=== PATIENT | female | born 1990 ===

== ENCOUNTER 2018-05-17 19:00 | Inpatient (IN) | payer OTHER ==
[2018-05-17] MEDS ORDERED: PROMETHAZINE HCL 25 MG/1 ML VIAL IVPUSH ONE (20:40)
[2018-05-17] MEDS ORDERED: BUTORPHANOL TARTRATE 1 MG/ML VIAL IVPUSH ONE (20:40)
--- NOTE | 2018-05-17 20:40 | HP ---
Past Medical History - Primary Care Physician PCP:: Paulette Melgar - Admission Chief Complaint: 28yo P0 @ 40.4 with + FM, no VB, no LOF. for Postterm IOL History of Present Illness: 1. Anemia of - s/p one iron transfusion 2. Domesticated cat - Toxo IgG/IgM neg 3. Choroid plexus cyst resolved 4. PCOS - spontaneous 5. Low lying placenta resolved 6. GCT abn - GTT wnl 7. Tdap 03/11/18 8. Flu shot 05/16/18 History Source: Patient Limitations to Obtaining History: No Limitations - Past Medical History ...: 1 ...Para: 0 ... Weeks Gestation by Dates: 40.4 ...EDC by Dates: 05/13/18 Heme/Onc: Yes: Anemia (of , had iron transfusion) Endocrine: Yes: Other (PCOS) - Past Surgical History Hx Myomectomy: No Hx Transabdominal Cerclage: No Additional Surgical History: 1. Nose surgery. 2. Moles removed from the skin Home Medications - Allergies Allergies/Adverse Reactions: Allergies Allergy/AdvReac Type Severity Reaction Status Date / Time Penicillins AdvReac Verified 05/17/18 21:24 Family Disease History - Family Disease History Other Family History: PGM Breast CA Review of Systems - Review of Systems Constitutional: reports: No Symptoms Eyes: reports: No Symptoms HENT: reports: No Symptoms Neck: reports: No Symptoms Cardiovascular: reports: No Symptoms Respiratory: reports: No Symptoms Gastrointestinal: reports: No Symptoms Genitourinary: reports: No Symptoms Breasts: reports: No Symptoms Reported Musculoskeletal: reports: No Symptoms Integumentary: reports: No Symptoms Neurological: reports: No Symptoms Endocrine: reports: No Symptoms Hematology/Lymphatic: reports: No Symptoms Psychiatric: reports: No Symptoms Pain Intensity: 0 Physical Exam - Maternity Constitutional: Yes: Well Nourished, No Distress, Calm Eyes: Yes: WNL, Conjunctiva Clear, EOM Intact HENT: Yes: WNL, Atraumatic, Normocephalic Neck: Yes: WNL, Supple, Trachea Midline Cardiovascular: Yes: WNL, Regular Rate and Rhythm Lungs: Clear to auscultation Breast(s): Yes: WNL - Abdominal Exam/OB Fundal Height: 36 (EFW 6.5lb) Number of Fetuses: Single Presentation: Vertex Contractions: No Monitor Mode: External Heart Rate (range): 130 Heart Rate Location: Midline Category: I Accelerations: Uniform Decelerations: None - Vaginal Exam/OB Vaginal Bleediing: No Speculum Exam: No (Patient denies h/o HSV) Dilatation (cm): 2 Effacement (%): 20% Amniotic Membrane Status: Intact Presentation: Vertex/Position Station: -3 - Physical Exam Musculoskeletal: Yes: WNL, Other (Anthropoid pelvis, Small fetus, well engaged) Extremities: Yes: WNL Edema: No Integumentary: Yes: WNL ...Motor Strength: WNL Psychiatric: Yes: WNL, Alert, Oriented Assessment/Plan 28yo P0 @ 40.4wks for postterm IOL Admit to L&D IVF, labs We had long discussion re: risks, benefits, and alternatives of labor induction. I explained the options of expectant management awaiting spontaneous labor, induction of labor, and elective section. Patient informed her pelvis structure is not the most favorable, but the fetus is small. The risks of uterine tachysystole, distress, uterine rupture, need for emergency C/S , hemorrhage, infection, scarring, etc. were discussed. We also discussed the risks of meconium aspiration, shoulder dystocia, and anesthesia options. The pt requested to proceed with induction. We discussed the alternative methods of induction with Cervidil, Cytotec, Folley ballon, and pitocin. Will proceed with Cytotec
[2018-05-17] MEDS ORDERED: DEXTROSE 5%-LACTATED RINGERS 1,000 ML IV SCH (20:45)
[2018-05-17] MEDS ORDERED: MISOPROSTOL 100 MCG TABLET PV ONE (21:00)
[2018-05-17 21:53] LABS: BASO % 0.3 % (0-2.0); EOS % 0.1 % (0-4.5); HEMATOCRIT 31.3 % (32.4-45.2); HEMOGLOBIN 10.7 GM/dL (10.7-15.3); LYMPH % 17.9 % (8-40); MCHC 34.1 g/dl (32.0-36.0); MEAN CELL VOLUME 90.7 fl (80-96); MEAN PLT VOLUME 11.4 fl (7.5-11.1); MONO % 5.1 % (3.8-10.2); NEUT % 76.6 % (42.8-82.8); PLATELET COUNT 150 K/MM3 (134-434); RBC 3.45 M/mm3 (3.60-5.2); RDW 14.1 % (11.6-15.6); WHITE BLOOD COUNT 9.1 K/mm3 (4.0-10.0)
[2018-05-17 22:12] VITALS: BMI 26.0
[2018-05-17 22:16] LABS: ANION GAP 12 MMOL/L (8-16); BLOOD UREA NITROGEN 12 mg/dL (7-18); CALCIUM 9.2 mg/dL (8.5-10.1); CHLORIDE 105 mmol/L (98-107); CO2 23 mmol/L (21-32); CREATININE 0.7 mg/dL (0.55-1.3); GLUCOSE,RANDOM 81 mg/dL (74-106); INR 0.85 (0.83-1.09); SODIUM 140 mmol/L (136-145)
[2018-05-18] MEDS ORDERED: BUTORPHANOL TARTRATE 1 MG/ML VIAL ONE ×2 (01:09)
[2018-05-18] MEDS ORDERED: PROMETHAZINE HCL 25 MG/1 ML VIAL ONE (01:10)
[2018-05-18] MEDS ORDERED: FENTANYL/BUPIVACAINE/NS/PF - PCEA - 50 ML DISP.SYRIN EP ONE ×4 (04:04→17:16)
[2018-05-18] MEDS: FENTANYL/BUPIVACAINE/NS/PF - PCEA - 50 ML DISP.SYRIN EP SCH (04:15)
--- NOTE | 2018-05-18 05:29 | PN ---
Progress Note, Labor Vaginal Exam #1 Labor Exam Date: 05/18/18 Labor Exam Time: 05:00 Heart Rate (range): 140 + accels, no decels Dilatation: 4-5 Effacement (%): 80 Amniotic Membrane Status: Ruptured Presentation: Vertex/Position Station: -2 Remarks: Category 1 FHR in active labor Regular contractions on Cytotec Will start Pitocin once contractions wear off
[2018-05-18] MEDS ORDERED: NALOXONE HCL 0.4 MG/ML VIAL IVPUSH PRN (05:34)
[2018-05-18] MEDS ORDERED: TUBERCULIN PPD 5 TU/0.1ML SYRINGE (IN PATIENT USE ONLY) ID ONE (07:00)
[2018-05-18] MEDS: ELECTROLYTE-148 SOLN 1,000 ML IV SCH ×2 (07:00→15:00)
[2018-05-18] MEDS ORDERED: OXYTOCIN 30 UNITS in 0.9% NS 30 UNIT/500 ML INFUS.BAG IVPB SCH (09:30)
[2018-05-18] MEDS ORDERED: ACETAMINOPHEN INJECTION 100 ML IVPB ONE (10:20)
[2018-05-18] MEDS ORDERED: ACETAMINOPHEN 1000 MG/100 ML VIAL (NON FORMULARY) IVPB ONE (10:45)
[2018-05-18] MEDS ORDERED: GENTAMICIN SO4 80 MG/2 ML VIAL ONE (10:46)
[2018-05-18] MEDS: GENTAMICIN 80 MG PREMIXED IVPB 80 MG/100 ML BAG IVPB SCH ×2 (10:50→19:05)
[2018-05-18] MEDS: CLINDAMYCIN 600MG PREMIX IVPB 600 MG/50 ML BAG IVPB SCH ×2 (12:00→17:05)
[2018-05-18] MEDS ORDERED: OXYTOCIN 30 UNITS in 0.9% NS 30 UNIT/500 ML INFUS.BAG IVPB ONE (13:32)
[2018-05-18] MEDS ORDERED: BUPIVACAINE HCL/PF 0.5% (5MG/ML) 10 ML VIAL ONE (16:11)
[2018-05-18] MEDS ORDERED: CLINDAMYCIN PHOSPHATE 600 MG/4 ML VIAL ONE (16:56)
[2018-05-18] MEDS ORDERED: OXYTOCIN 20 UNITS in 0.9% NS 20 UNIT/1,000 ML INFUS.BAG IV ONE ×2 (18:39→22:23)
[2018-05-18] MEDS ORDERED: LIDOCAINE HCL 1% PRESERVATIVE FREE - 30ML VIAL ONE (19:12)
[2018-05-18] MEDS ORDERED: WITCH HAZEL 50% (TUCKS) 40 PAD/JAR PAD TP PRN (20:29)
[2018-05-18] MEDS ORDERED: BISACODYL 10 MG SUPP.RECT RC PRN (20:29)
[2018-05-18] MEDS ORDERED: METHYLERGONOVINE MALEATE 0.2 MG/1 ML AMP IM PRN (20:29)
[2018-05-18] MEDS ORDERED: BENZOCAINE 20% 57 GM BOTTLE TP PRN (20:29)
[2018-05-18] MEDS ORDERED: BENZOCAINE 28 GM HEMORRHOIDAL OINTMENT TP PRN (20:29)
--- NOTE | 2018-05-18 20:29 | PN ---
Delivery - Delivery Vaginal Delivery: No Problems Type of Anesthesia: Epidural Episiotomy/Laceration: Midline EBL (cc): 200 Delivery, Single - Stages of Labor Date 1st Stage Initiatied: 05/18/18 Time 1st Stage Initiated: 01:00 Date 2nd Stage Initiated: 05/18/18 Time 2nd Stage Initiated: 18:00 Date of Delivery: 05/18/18 Time of Delivery: 20:02 Date Placenta Delivered: 05/18/18 Time Placenta Delivered: 20:20 Placenta: Yes: Spontaneous - Condition of Band Splitter/Honeycomb Decapper Present: Yes Name: Kati Barroso Gender: Male Weight: 7 lb 12 oz Position: Left, OA - 1 Minute Total Score: 9 5 Minutes Total Score: 9 - Feeding Plan Initial Plan: Exclusive throughout hospitalization Benefits of Exclusively reinforced: Yes
[2018-05-18] MEDS ORDERED: D5W-LR W/ 20 UNITS OXYTOCIN 20 UNIT/1,000 ML INFUS.BAG IV SCH (20:30)
[2018-05-18] MEDS ORDERED: ACETAMINOPHEN 325 MG TABLET (FP) ONE (21:03)
[2018-05-18] MEDS ORDERED: IBUPROFEN 600 MG TABLET (FP) PO ONE (21:03)
[2018-05-18] MEDS: ACETAMINOPHEN 325 MG TABLET (FP) PO PRN (21:05)
[2018-05-18] MEDS: IBUPROFEN 600 MG TABLET (FP) PO PRN (21:05)
[2018-05-18 21:56] LABS: VENOUS PC02 51.3 mmHg (38-52)
[2018-05-18 21:58] LABS: VENOUS PH 7.24 (7.32-7.42); VENOUS PO2 17.2 mmHg (28-48)
[2018-05-19] MEDS: CLINDAMYCIN 600MG PREMIX IVPB 600 MG/50 ML BAG IVPB SCH ×2 (00:52→06:02)
[2018-05-19] MEDS: GENTAMICIN 80 MG PREMIXED IVPB 80 MG/100 ML BAG IVPB SCH (04:29)
[2018-05-19] MEDS: FENTANYL/BUPIVACAINE/NS/PF - PCEA - 50 ML DISP.SYRIN EP SCH (06:44)
[2018-05-19 07:47] LABS: BASO % 0.1 % (0-2.0); EOS % 0.1 % (0-4.5); HEMATOCRIT 26.8 % (32.4-45.2); HEMOGLOBIN 8.8 GM/dL (10.7-15.3); LYMPH % 10.6 % (8-40); MCHC 32.7 g/dl (32.0-36.0); MEAN CELL VOLUME 91.5 fl (80-96); MEAN PLT VOLUME 10.7 fl (7.5-11.1); MONO % 4.5 % (3.8-10.2); NEUT % 84.7 % (42.8-82.8); PLATELET COUNT 116 K/MM3 (134-434); RBC 2.93 M/mm3 (3.60-5.2); RDW 14.1 % (11.6-15.6); WHITE BLOOD COUNT 19.6 K/mm3 (4.0-10.0)
[2018-05-19] MEDS: FERROUS SO4 325 MG TABLET (FP) PO SCH ×2 (08:46→17:43)
--- NOTE | 2018-05-19 09:47 | DS ---
Physical Exam-IC DESIGN ENGINEER Vital Signs: Vital Signs Temperature 97.7 F 05/19/18 04:00 Pulse Rate 65 05/19/18 04:00 Respiratory Rate 20 05/19/18 04:00 Blood Pressure 117/64 05/19/18 04:00 O2 Sat by Pulse Oximetry (%) 100 05/18/18 21:15 Constitutional: Yes: Well Nourished, No Distress, Calm Eyes: Yes: WNL, Conjunctiva Clear, EOM Intact HENT: Yes: WNL Neck: Yes: WNL Cardiovascular: Yes: WNL, Regular Rate and Rhythm Respiratory: Yes: WNL, Regular, CTA Bilaterally Gastrointestinal: Yes: WNL, Normal Bowel Sounds, Soft Renal/: Yes: WNL Pelvis: Yes: WNL External Genitalia: Yes: Normal ....Post : Yes: Uterus firm, Uterus non-tender Breast(s): Yes: WNL Musculoskeletal: Yes: WNL Extremities: Yes: WNL Edema: No Integumentary: Yes: WNL Neurological: Yes: WNL, Alert, Oriented ...Motor Strength: WNL Psychiatric: Yes: WNL, Alert, Oriented Labs: CBC, BMP 05/19/18 07:05 05/17/18 21:00 Delivery - Delivery Vaginal Delivery: No Problems Type of Anesthesia: Epidural Episiotomy/Laceration: Midline EBL (cc): 200 Delivery, Single - Stages of Labor Date 1st Stage Initiatied: 05/18/18 Time 1st Stage Initiated: 01:00 Date 2nd Stage Initiated: 05/18/18 Time 2nd Stage Initiated: 18:00 Date of Delivery: 05/18/18 Time of Delivery: 20:02 Time Placenta Delivered: 20:20 Placenta: Yes: Spontaneous - Condition of Infant Senior Benefits Manager/Cuff Folder Present: Yes Name: Kati Barroso Infant Gender: Male Weight: 7 lb 12 oz Position: Left, OA Total Hours ROM (Hrs/Mins): 20h 32m - 1 Minute Total Score: 9 5 Minutes Total Score: 9 - [place] Feeding Plan Initial Plan: Exclusive throughout hospitalization Benefits of Exclusively reinforced: Yes Discharge Summary Reason For Visit: INDUCTION OF LABOR Procedures: Principal: Post term Labor induction Other Procedures: Normal vaginal delivery Condition: Good - Instructions Diet, Activity, Other Instructions: Physical activity Resume your normal everyday activity as tolerated no heavy lifting or exercise until seen by your surgeon. You may walk unlimited carlos of and climb stairs. You may resume driving the car when you feel safe and comfortable behind the wheel. No sexual activity as instructed. Wound care If you have a bandage, leave it on, and keep dry for 48-72 hours. After that time discard the outer bandage. If they are tapes on the skin under the out of bandage leave them in place. They will peel off in the next 7 to 10 days. Do Not Peel them off. You may shower the day after surgery. If there are tapes present on the skin, you may shower over them. Diet There are no dietary restrictions. Eat healthy, high-fiber foods. Drink 6 to 8 glasses of liquid each day. This will assist in keeping your bowels are regular. Pain management You may take Tylenol or acetaminophen or Ibuprofen (for example, Motrin, Advil etc.) from my pain prescription medication is ordered should be taken as prescribed for moderate to severe pain. Call MD for any of the following: Severe pain not relieved by medication Fever of 101 or higher Excessive bleeding or drainage on dressing Inability to urinate Referrals: Paulette Melgar MD [Staff Physician] - Disposition: HOME - Home Medications Comprehensive Discharge Medication List: Ambulatory Orders Pnv 29-1 Tablet 1 tab PO DAILY 05/18/18
--- NOTE | 2018-05-19 09:47 | PN ---
Post Progress Note - Subjective Subjective: Patient without acute complaints. Reports tolerating oral intake without nausea or vomiting. Ambulating without dizziness. Denies fevers or chills. Pain well controlled with oral pain medication. without difficulty. Passing flatus. Post Day: 1 Type of Delivery: Vital Signs: Vital Signs Temperature 97.7 F 05/19/18 04:00 Pulse Rate 65 05/19/18 04:00 Respiratory Rate 20 05/19/18 04:00 Blood Pressure 117/64 05/19/18 04:00 O2 Sat by Pulse Oximetry (%) 100 05/18/18 21:15 Breast Exam: Yes: Soft Uterus: Yes: Fundus Firm, Fundus @ umbilicus, Non-tender Abdomen/GI: Yes: Abdomen soft Lochia: Yes: Rubra Lochia, amount: Small Extremities: Yes: Calves non-tender Perineum: Yes: Laceration (decreased edeama) Activity: Ambulating - Labs Labs: CBC WBC 19.6 K/mm3 (4.0-10.0) H 05/19/18 07:05 RBC 2.93 M/mm3 (3.60-5.2) L 05/19/18 07:05 Hgb 8.8 GM/dL (10.7-15.3) L 05/19/18 07:05 Hct 26.8 % (32.4-45.2) L 05/19/18 07:05 MCV 91.5 fl (80-96) 05/19/18 07:05 MCH 30.0 pg (25.7-33.7) 05/19/18 07:05 MCHC 32.7 g/dl (32.0-36.0) 05/19/18 07:05 RDW 14.1 % (11.6-15.6) 05/19/18 07:05 Plt Count 116 K/MM3 (134-434) L D 05/19/18 07:05 MPV 10.7 fl (7.5-11.1) 05/19/18 07:05 Absolute Neuts (auto) 16.6 K/mm3 (1.5-8.0) H 05/19/18 07:05 Neutrophils % 84.7 % (42.8-82.8) H 05/19/18 07:05 Lymphocytes % 10.6 % (8-40) D 05/19/18 07:05 Monocytes % 4.5 % (3.8-10.2) 05/19/18 07:05 Eosinophils % 0.1 % (0-4.5) 05/19/18 07:05 Basophils % 0.1 % (0-2.0) 05/19/18 07:05 Nucleated RBC % 0 % (0-0) 05/19/18 07:05 Assessment/Plan 28yo P1 PPD # 1 1. Doing well 2. VSS, Afebrile, no evidance of acute blood loss 3. Rh positive status, no rhogam indicated. 4. Encourage ambulation 5. Continue oral pain medication 6. Discharge home 05/20/18 7. Instructed on Pelvic rest for 6weeks 8. Return to office in 4-6 weeks 9. Baby will have home ritual Bris
[2018-05-19] MEDS: PRENATAL VITAMINS W/ FOLIC ACID TABLET (FP) PO SCH (09:48)
[2018-05-19] MEDS: ACETAMINOPHEN 325 MG TABLET (FP) PO PRN ×3 (14:52→22:56)
[2018-05-19] MEDS: IBUPROFEN 600 MG TABLET (FP) PO PRN ×3 (14:52→22:56)
[2018-05-19 17:44] VITALS: TEMP 97.9
[2018-05-19] MEDS ORDERED: SENNOSIDES/DOCUSATE COMBO (SENNA PLUS) TABLET (UD) PO PRN (22:00)
[2018-05-20 08:08] LABS: BASO % 0.4 % (0-2.0); EOS % 1.2 % (0-4.5); HEMATOCRIT 25.8 % (32.4-45.2); HEMOGLOBIN 8.4 GM/dL (10.7-15.3); LYMPH % 15.6 % (8-40); MCHC 32.5 g/dl (32.0-36.0); MEAN CELL VOLUME 92.2 fl (80-96); MEAN PLT VOLUME 10.8 fl (7.5-11.1); MONO % 3.7 % (3.8-10.2); NEUT % 79.1 % (42.8-82.8); PLATELET COUNT 127 K/MM3 (134-434); RDW 14.3 % (11.6-15.6)
[2018-05-20] MEDS: FERROUS SO4 325 MG TABLET (FP) PO SCH (08:31)
[2018-05-20 08:45] VITALS: BP 122/81; PULSE 61
[2018-05-20] MEDS: PRENATAL VITAMINS W/ FOLIC ACID TABLET (FP) PO SCH (09:14)
[2018-05-20] MEDS: IBUPROFEN 600 MG TABLET (FP) PO PRN (09:15)
[2018-05-20] MEDS: ACETAMINOPHEN 325 MG TABLET (FP) PO PRN (09:15)
== END 2018-05-20 11:00 | disposition home or self-care (01) | DRG 775 ==
LOC: JLDR 19:00 → J3W 05-18 22:40
PROVIDERS: ADMIT Obstetrics & Gynecology; ATTEND Obstetrics & Gynecology
PROC: 10E0XZZ Delivery of Products of Conception, External Approach (ICD-10-PCS; principal; 2018-05-18)
PROC: 0W8NXZZ Division of Female Perineum, External Approach (ICD-10-PCS; 2018-05-18)
DX: O48.0 Post-term pregnancy (principal); Z3A.40 40 weeks gestation of pregnancy; Z37.0 Single live birth
CPT/HCPCS: 36415; 59409; 80048; 82803; 85025; 85610; 85730; 86593; 86762; 86850; 86900; 86901; 87389; J0131

== ENCOUNTER 2021-01-24 07:15 | Observation (INO) | payer OTHER ==
[2021-01-24 08:39] VITALS: BMI 26.6
[2021-01-24] MEDS ORDERED: TERBUTALINE SULFATE 1 MG/1 ML VIAL SQ ONE ×2 (09:05→10:45)
[2021-01-24 09:07] LABS: BASO % 0.3 % (0-2.0); EOS % 0.2 % (0-4.5); HEMOGLOBIN 11.1 GM/dL (10.7-15.3); LYMPH % 16.6 % (8-40); MCH 31.6 pg (25.7-33.7); MCHC 34.6 g/dl (32.0-36.0); MEAN CELL VOLUME 91.3 fl (80-96); MEAN PLT VOLUME 9.5 fl (7.5-11.1); MONO % 5.2 % (3.8-10.2); NEUT % 77.7 % (42.8-82.8); PLATELET COUNT 175 K/MM3 (134-434); RDW 13.2 % (11.6-15.6); WHITE BLOOD COUNT 10.5 K/mm3 (4.0-10.0)
[2021-01-24 09:13] LABS: INR 0.94 (0.83-1.09); PROTHROMBIN TIME (PATIENT) 11.6 SEC (9.7-13.0)
[2021-01-24 09:15] LABS: ACTIVATED PTT 25.6 SECONDS (25.2-36.5)
[2021-01-24 09:31] LABS: CALCIUM 8.3 mg/dL (8.5-10.1)
[2021-01-24 09:32] LABS: BLOOD UREA NITROGEN 7.8 mg/dL (7-18)
[2021-01-24 09:35] LABS: CREATININE 0.5 mg/dL (0.55-1.3)
[2021-01-24] MEDS ORDERED: ELECTROLYTE-148 SOLN 1,000 ML IV SCH (09:45)
[2021-01-24] MEDS ORDERED: DEXTROSE 5%-LACTATED RINGERS 1,000 ML IV SCH (09:45)
[2021-01-24 10:32] VITALS: BP 99/58; PULSE 63; TEMP 97.8
== END 2021-01-24 11:40 | disposition home or self-care (01) ==
LOC: INTOOBSV 07:15 → JLDR 07:15 → UNDOADMOB 07:15 → JLDR 09:42
PROVIDERS: ADMIT Obstetrics & Gynecology; ATTEND Obstetrics & Gynecology
PROC: 10S0XZZ Reposition Products of Conception, External Approach (ICD-10-PCS; principal; 2021-01-24)
PROC: 3E0337Z Introduction of Electrolytic and Water Balance Substance into Peripheral Vein, Percutaneous Approach (ICD-10-PCS; 2021-01-24)
PROC: 3E033GC Introduction of Other Therapeutic Substance into Peripheral Vein, Percutaneous Approach (ICD-10-PCS; 2021-01-24)
PROC: 3E023GC Introduction of Other Therapeutic Substance into Muscle, Percutaneous Approach (ICD-10-PCS; 2021-01-24)
DX: O32.1XX1 Maternal care for breech presentation, fetus 1 (principal); Z3A.37 37 weeks gestation of pregnancy; Z88.0 Allergy status to penicillin
CPT/HCPCS: 36415; 80048; 85025; 85610; 85730; 86780; 86850; 86900; 86901; C9803; G0378; U0003; U0005

== ENCOUNTER 2021-02-06 00:57 | Inpatient (IN) | payer OTHER ==
[2021-02-06 06:49] VITALS: BMI 27.1
[2021-02-06 07:01] LABS: BASO % 0.3 % (0-2.0); EOS % 0.4 % (0-4.5); HEMATOCRIT 33.7 % (32.4-45.2); HEMOGLOBIN 11.3 GM/dL (10.7-15.3); LYMPH % 16.4 % (8-40); MCH 30.7 pg (25.7-33.7); MCHC 33.5 g/dl (32.0-36.0); MEAN CELL VOLUME 91.4 fl (80-96); MEAN PLT VOLUME 9.9 fl (7.5-11.1); MONO % 4.3 % (3.8-10.2); NEUT % 78.6 % (42.8-82.8); PLATELET COUNT 220 10^3/uL (134-434); RBC 3.69 M/mm3 (3.60-5.2); RDW 13.6 % (11.6-15.6); WHITE BLOOD COUNT 10.1 K/mm3 (4.0-10.0)
[2021-02-06 07:09] LABS: INR 0.91 (0.83-1.09); PROTHROMBIN TIME (PATIENT) 11.2 SEC (9.7-13.0)
[2021-02-06 07:11] LABS: ACTIVATED PTT 25.1 SECONDS (25.2-36.5)
[2021-02-06 07:27] LABS: BLOOD UREA NITROGEN 8.7 mg/dL (7-18); CALCIUM 8.2 mg/dL (8.5-10.1)
[2021-02-06 07:30] LABS: CREATININE 0.7 mg/dL (0.55-1.3)
[2021-02-06] MEDS ORDERED: OXYTOCIN 30 UNITS in 0.9% NS 30 UNIT/500 ML INFUS.BAG IVPB ONE (08:02)
[2021-02-06] MEDS ORDERED: PROMETHAZINE HCL 25 MG/1 ML VIAL IVPUSH ONE (08:30)
[2021-02-06] MEDS ORDERED: ELECTROLYTE-148 SOLN 1,000 ML IV SCH (08:30)
[2021-02-06] MEDS ORDERED: DEXTROSE 5%-LACTATED RINGERS 1,000 ML IV SCH (08:30)
[2021-02-06] MEDS ORDERED: BUTORPHANOL TARTRATE 1 MG/ML VIAL IVPB ONE (08:30)
[2021-02-06] MEDS ORDERED: OXYTOCIN 30 UNITS in 0.9% NS 30 UNIT/500 ML INFUS.BAG IVPB SCH (12:15)
[2021-02-06] MEDS ORDERED: PCA PUMP NR ONE (13:08)
[2021-02-06] MEDS ORDERED: FENTANYL/BUPIVACAINE/NS/PF - PCEA - 50 ML DISP.SYRIN EP ONE (13:08)
[2021-02-06] MEDS ORDERED: BUPIVACAINE HCL/PF 0.25% (2.5MG/ML) 10 ML VIAL ONE (13:14)
[2021-02-06] MEDS: FENTANYL/BUPIVACAINE/NS/PF - PCEA - 50 ML DISP.SYRIN EP SCH (13:20)
[2021-02-06] MEDS ORDERED: NALOXONE HCL 0.4 MG/ML VIAL IVPUSH PRN (13:37)
[2021-02-06] MEDS ORDERED: OXYTOCIN 20 UNITS in 0.9% NS 20 UNIT/1,000 ML INFUS.BAG IV ONE (15:56)
[2021-02-06 19:19] LABS: CORD BASE EXCESS -4.7 mmol/L (0-2); CORD BASE EXCESS -5.4 mmol/L (0-2); CORD HCO3 20.7 mmHg (20-29); CORD HCO3 24.1 mmHg (20-29); CORD PCO2 39.3 mmHg (30-78); CORD PCO2 64.5 mmHg (30-78); CORD pH 7.191 (7.14-7.44); CORD pH 7.339 (7.14-7.44)
[2021-02-06] MEDS ORDERED: IBUPROFEN 800 MG/8 ML IJ IVPB ONE (19:36)
[2021-02-06] MEDS ORDERED: WITCH HAZEL 50% (TUCKS) 40 PAD/JAR PAD TP PRN (22:10)
[2021-02-06] MEDS ORDERED: BISACODYL 10 MG SUPP.RECT RC PRN (22:10)
[2021-02-06] MEDS ORDERED: METHYLERGONOVINE MALEATE 0.2 MG/1 ML AMP IM PRN (22:10)
[2021-02-06] MEDS ORDERED: BENZOCAINE 20% 57 GM BOTTLE TP PRN (22:10)
[2021-02-06] MEDS ORDERED: BENZOCAINE 28 GM HEMORRHOIDAL OINTMENT TP PRN (22:10)
[2021-02-06] MEDS ORDERED: OXYTOCIN 20 UNITS in 0.9% NS 20 UNIT/1,000 ML INFUS.BAG IV SCH (22:15)
[2021-02-06] MEDS: ACETAMINOPHEN 325 MG TABLET (FP) PO PRN (22:25)
[2021-02-07] MEDS: IBUPROFEN 600 MG TABLET (FP) PO PRN ×6 (01:51→23:29)
[2021-02-07] MEDS: ACETAMINOPHEN 325 MG TABLET (FP) PO PRN ×5 (06:14→23:29)
[2021-02-07 08:35] LABS: BASO % 0.3 % (0-2.0); EOS % 0.4 % (0-4.5); HEMATOCRIT 31.6 % (32.4-45.2); HEMOGLOBIN 10.3 GM/dL (10.7-15.3); MCHC 32.7 g/dl (32.0-36.0); MEAN CELL VOLUME 91.8 fl (80-96); MEAN PLT VOLUME 9.9 fl (7.5-11.1); MONO % 4.1 % (3.8-10.2); NEUT % 85.2 % (42.8-82.8); PLATELET COUNT 186 10^3/uL (134-434); RBC 3.44 M/mm3 (3.60-5.2); RDW 13.2 % (11.6-15.6); WHITE BLOOD COUNT 17.6 K/mm3 (4.0-10.0)
[2021-02-07] MEDS: PRENATAL VITAMINS W/ FOLIC ACID TABLET (FP) PO SCH (09:09)
[2021-02-07] MEDS: FERROUS SO4 325 MG TABLET (FP) PO SCH ×2 (09:09→17:17)
[2021-02-07] MEDS ORDERED: SENNOSIDES/DOCUSATE COMBO (SENNA PLUS) TABLET (UD) PO PRN (22:00)
[2021-02-08] MEDS: IBUPROFEN 600 MG TABLET (FP) PO PRN (08:09)
[2021-02-08] MEDS: ACETAMINOPHEN 325 MG TABLET (FP) PO PRN (08:10)
[2021-02-08] MEDS: FERROUS SO4 325 MG TABLET (FP) PO SCH (08:10)
[2021-02-08] MEDS: FENTANYL/BUPIVACAINE/NS/PF - PCEA - 50 ML DISP.SYRIN EP SCH (08:37)
[2021-02-08] MEDS: PRENATAL VITAMINS W/ FOLIC ACID TABLET (FP) PO SCH (09:23)
[2021-02-08 11:29] VITALS: BP 125/69; PULSE 63; TEMP 98.6
== END 2021-02-08 13:00 | disposition home or self-care (01) | DRG 807 ==
LOC: UNDOADMIN 00:57 → JLDR 00:57 → J3W 20:43
PROVIDERS: ADMIT Obstetrics & Gynecology; ATTEND Obstetrics & Gynecology
PROC: 10E0XZZ Delivery of Products of Conception, External Approach (ICD-10-PCS; principal; 2021-02-06)
PROC: 3E0P7VZ Introduction of Hormone into Female Reproductive, Via Natural or Artificial Opening (ICD-10-PCS; 2021-02-06)
PROC: 0W8NXZZ Division of Female Perineum, External Approach (ICD-10-PCS; 2021-02-06)
DX: O32.0XX0 Maternal care for unstable lie, not applicable or unspecified (principal); Z37.0 Single live birth; O99.824 Streptococcus B carrier state complicating childbirth; O69.81X0 Labor and delivery complicated by cord around neck, without compression, not applicable or unspecified; O70.0 First degree perineal laceration during delivery; O99.02 Anemia complicating childbirth; D64.9 Anemia, unspecified; O99.284 Endocrine, nutritional and metabolic diseases complicating childbirth; E28.2 Polycystic ovarian syndrome; Z3A.39 39 weeks gestation of pregnancy
CPT/HCPCS: 36415; 36600; 59409; 80048; 82803; 85025; 85610; 85730; 86780; 86850; 86900; 86901; C9803; U0003; U0005